=== PATIENT | male | born 1995 | race Caucasian/White ===

== ENCOUNTER 2017-04-06 16:56 | Emergency (ER) | payer BC, MEDICAID, OTHER ==
--- NOTE | 2017-04-06 18:29 | ERPHSYRPT ---
- History of Present Illness Source: patient Exam Limitations: no limitations Patient Subjective Stated Complaint: pt co sore throat for a few days, with fever yesterday, cough productive yellow sputum, Triage Nursing Assessment: pt walked in,alert, resp easy, skin w/d. throat red Timing/Duration: yesterday Cough Quality/Degree: moderate, productive cough, sputum (yellowish) Possible Cause: occasional episodes Modifying Factors: Improves With: nothing Associated Symptoms: fever Hx Tetanus, Diphtheria Vaccination/Date Given: Yes Hx Influenza Vaccination/Date Given: Yes Hx Pneumococcal Vaccination/Date Given: No Immunizations Up to Date: Yes <LEONARDO STUART - Last Filed: 04/06/17 18:34> <FOX DAVIES - Last Filed: 04/06/17 20:01> - History of Present Illness Time Seen by Provider: 04/06/17 18:15 Allergies/Adverse Reactions: No Known Drug Allergies Allergy (Unverified 04/06/17 17:08) - Review of Systems Constitutional: Fever Eyes: No Symptoms Ears, Nose, & Throat: Throat Pain, Painful Swallowing Respiratory: Cough Cardiac: No Symptoms Abdominal/Gastrointestinal: No Symptoms Genitourinary Symptoms: No Symptoms Musculoskeletal: No Symptoms Skin: No Symptoms Neurological: No Symptoms Psychological: No Symptoms Endocrine: No Symptoms Hematologic/Lymphatic: No Symptoms Immunological/Allergic: No Symptoms <LEONARDO STUART - Last Filed: 04/06/17 18:34> - Past Medical History Pertinent Past Medical History: No - Past Surgical History Past Surgical History: No - Social History Smoking Status: Current every day smoker Exposure to second hand smoke: Yes Drug Use: none Patient Lives Alone: No <LEONARDO STUART - Last Filed: 04/06/17 18:34> - Physical Exam General Appearance: mild distress Eye Exam: eyes nml inspection Ears, Nose, Throat Exam: pharyngeal erythema, tonsillar exudate Neck Exam: normal inspection, non-tender, supple, full range of motion Respiratory Exam: normal breath sounds, lungs clear, airway intact Cardiovascular Exam: regular rate/rhythm, normal heart sounds Gastrointestinal/Abdomen Exam: soft, normal bowel sounds Back Exam: normal inspection, normal range of motion, No CVA tenderness Extremity Exam: normal inspection, normal range of motion, pelvis stable Neurologic Exam: alert, oriented x 3, cooperative Skin Exam: normal color, warm, dry SpO2 Interpretation: normal SpO2: 98 Oxygen Delivery: Room Air <NARCISOLEONARDO SOTELO - Last Filed: 04/06/17 18:34> - Course Nursing assessment & vital signs reviewed: Yes <NARCISOLEONARDO SOTELO - Last Filed: 04/06/17 18:34> - Progress Discussed with .: Other (Care Transferred to Dr. Davies, with labs F/U.) <NARCISOLEONARDO SOTELO - Last Filed: 04/06/17 18:34> - Progress Counseled pt/family regarding: lab results, diagnosis, need for follow-up <FOX DAVIES - Last Filed: 04/06/17 20:01> - Progress Progress Note: 04/06/17 19:30 Pt was initially seen per Dr Stuart. He has cough, wheezing, low grade fever to 100.9, sore throat for one week. No diarrhea. No rash. Used a neb. Remote hx of childhood asthma. He is a smoker. PE: alert, lungs with faint wheeze. No distress. Red throat without exudate. Neck supple. Skin without rash. No leg edema or calf tenderness. 04/06/17 19:59 Strep and flu neg. Will Rx asthmatic bronchitis. (FOX DAVIES) <LEONARDO STUART DEEPAK - Last Filed: 04/06/17 18:34> - Departure Time of Disposition: 19:59 Departure Disposition: Home Critical Care Time: No <FOX DAVIES - Last Filed: 04/06/17 20:01> - Departure Clinical Impression: Acute asthmatic bronchitis Condition: Stable Referrals: DAVID POPE [Primary Care Provider] - Instructions: Cough -- Adult, Bronchitis Additional Instructions: Rx prednisone. Rx albuterol MDI. Rx doxycycline. Stop smoking. Follow up with Dr Pope. Prescriptions: Albuterol Sulfate [Albuterol Sulfate Hfa] 2 puff IH Q4-6HPRN PRN #1 [id number] PRN Reason: cough or wheeze Doxycycline Hyclate [Vibramycin] 1 cap PO BID #20 capsule Prednisone 20 mg [Deltasone 20 mg] 2 tab PO DAILY #10 tablet
[2017-04-06] MEDS ORDERED: TYLENOL 325 MG PO ONE (19:26)
[2017-04-06] MEDS ORDERED: TYLENOL 325 MG ONE (19:28)
[2017-04-06] MEDS ORDERED: PROVENTIL 2.5 MG/3 ML NEB IH ONE ×2 (19:30→19:36)
[2017-04-06 20:09] VITALS: BP 129/70; PULSE 74; O2SAT 100
== END 2017-04-06 20:09 | disposition home or self-care (01) ==
LOC: ED 16:56
DX: J45.909 Unspecified asthma, uncomplicated (principal); R50.9 Fever, unspecified; R05 Cough
CPT/HCPCS: 87070; 87430; 87631; 94640; 99283; A9270-GY

== ENCOUNTER 2020-03-15 21:30 | Emergency (ER) | payer OTHER ==
[2020-03-15] MEDS ORDERED: PEN-VEE K PO ONE (22:16)
[2020-03-15] MEDS ORDERED: TORAdol 30 mg Injection IM ONE (22:16)
--- NOTE | 2020-03-15 22:16 | ERPHSYRPT ---
- History of Present Illness Time Seen by Provider: 03/15/20 21:45 Source: patient Patient Subjective Stated Complaint: Patient states " I have been having a toothache for about a month and it continues to get worse". Triage Nursing Assessment: Patient arrived to ER with girlfriend driving. Patient A/O times 4. Patient able to answer questions appropriatley. Patient denies SOB/chest pain. Patient denies H/A. Patient denies N/V. Oral mucosa pink/ moist. Patient's teeth in very poor condition. Multiple top front teeth chipped off and black in color. Patient complaining of severe toothache on upper teeth/ gums. Gums slightly red in color. No drainage or abcess noted upon visual inspection. Teeth are broke off up to the gum. Patient denies seeing a dentist. Physician History: Patient is a 25-year-old male presents to our ED with complaints of dental pain. Patient has pain to his left incisor canine and molar. Particularly teeth #10, 11 and 16. Patient has been having dental ache for the past month. However dental pain is gotten worse over the past several days. Patient has very poor dentition. Patient involved molar is fractured. Patient's left incisor and canine are both avulsed down to the root with exposed pulp. Symptoms are mild to moderate in intensity. Patient states he does not have a dentist. No associated trauma. No fever. No nausea or vomiting. Patient voices no other complaints this time. Timing/Duration: gradual onset Severity: moderate ENT Location: dental Prearrival Treatment: no prearrival treatment (Patient has been using topical Anbesol. No oral analgesics.) Modifying Factors: Improves With: other (Mastication involving the involved dentition reproduces pain.) Associated Symptoms: denies symptoms, tooth pain, No facial pain/swelling, No headache, No hearing loss, No difficulty swallowing, No voice change Allergies/Adverse Reactions: No Known Drug Allergies Allergy (Unverified 03/15/20 22:07) Hx Tetanus, Diphtheria Vaccination/Date Given: Yes Hx Influenza Vaccination/Date Given: No Hx Pneumococcal Vaccination/Date Given: No Immunizations Up to Date: Yes Travel Risk - International Travel Have you traveled outside of the country in past 3 weeks: No Have you or anyone close to you been diagnosed with or: No Do your reside in a community with a known COVID-19 case?: Yes If Yes where:: [facility] - Coronavirus Screening Has patient experienced Coronavirus symptoms: No - Review of Systems Constitutional: No Symptoms, No Fever, No Chills Eyes: No Symptoms Ears, Nose, & Throat: No Symptoms Respiratory: No Symptoms, No Cough, No Dyspnea Cardiac: No Symptoms, No Chest Pain, No Edema, No Syncope Abdominal/Gastrointestinal: No Symptoms, No Abdominal Pain, No Nausea, No Vomiting, No Diarrhea Genitourinary Symptoms: No Symptoms, No Dysuria Musculoskeletal: No Symptoms, No Back Pain, No Neck Pain Skin: No Symptoms, No Rash Neurological: No Symptoms, No Dizziness, No Focal Weakness, No Sensory Changes Psychological: No Symptoms Endocrine: No Symptoms Hematologic/Lymphatic: No Symptoms Immunological/Allergic: No Symptoms All Other Systems: Reviewed and Negative - Past Medical History Pertinent Past Medical History: No Neurological History: No Pertinent History ENT History: No Pertinent History Cardiac History: No Pertinent History Respiratory History: No Pertinent History Endocrine Medical History: No Pertinent History Musculoskeletal History: No Pertinent History GI Medical History: No Pertinent History History: No Pertinent History Psycho-Social History: No Pertinent History Male Reproductive Disorders: No Pertinent History - Past Surgical History Past Surgical History: No Neuro Surgical History: No Pertinent History Cardiac: No Pertinent History Respiratory: No Pertinent History Gastrointestinal: No Pertinent History Genitourinary: No Pertinent History Musculoskeletal: No Pertinent History Male Surgical History: No Pertinent History - Social History Smoking Status: Current every day smoker How long have you smoked: 9 years Exposure to second hand smoke: Yes Drug Use: none Patient Lives Alone: No - Nursing Vital Signs Nursing Vital Signs: Initial Vital Signs Temperature 97.9 F 03/15/20 21:38 Pulse Rate 106 H 03/15/20 21:38 Respiratory Rate 18 03/15/20 21:38 Blood Pressure 152/108 03/15/20 21:38 O2 Sat by Pulse Oximetry 98 03/15/20 21:38 Pain Scale Pain Intensity 9 - Physical Exam General Appearance: no apparent distress, alert Eye Exam: bilateral eye: PERRL, EOMI Ear Exam: bilateral ear: auricle normal, canal normal, TM normal Nasal Exam: normal inspection Throat Exam: pharynx normal, moist mucus membranes, No tonsillar exudate Neck Exam: supple Cardiovascular/Respiratory Exam: normal breath sounds, regular rate/rhythm Abdominal Exam: non-tender, soft Neurologic Exam: alert, oriented x 3, sensation nml, No motor deficits Skin Exam: normal color, warm, dry SpO2 Interpretation: normal (Teeth 10, 11 and 16 are involved. Tooth 16 is fractured. Teeth 10 and 11 are avulsed down to the root with exposed pulp. The adjacent gingiva is inflamed and tender likely due to pulpitis or possible dental abscess. Airways patent. No stridor. Uvula midline. No intraoral lesions. Lungs are clear. No respiratory distress. No respiratory compromise. TMJ intact.) SpO2: 98 O2 Delivery: Room Air - Course Nursing assessment & vital signs reviewed: No Ordered Tests: Active Orders 24 hr Category Date Time Status Isolation, Initiate & Maintain Q4H Care 03/15/20 21:54 Active Medication Summary Discontinued Medications Generic Name Dose Route Start Last Admin Trade Name Freq PRN Reason Stop Dose Admin Ketorolac Tromethamine 60 mg 03/15/20 22:16 Toradol 30 Mg Injection IM 03/15/20 22:17 STAT ONE Penicillin V Potassium 500 mg 03/15/20 22:16 Pen-Vee K PO 03/15/20 22:17 STAT ONE - Progress Progress: improved Progress Note: 03/15/20 22:34 No indication for imaging at this time. Patient received a dose of penicillin VK 500 and Toradol IM in our ED. Prescription for the same or transmitted to the [facility] pharmacy. Patient was given a referral to Dr. Drake, dentist in [facility]. Patient advised to schedule appointment within 48 hours for reevaluation. Patient agrees to do so. Counseled pt/family regarding: diagnosis, need for follow-up - Departure Departure Disposition: Home Clinical Impression: Dental abscess, Dental caries Condition: Stable Critical Care Time: No Referrals: TILA DRAKE DDS [NON-STAFF PHY W/O PRIVILEGES] - Instructions: Tooth Abscess (DC), Tooth Decay, Adult (DC), Dental Pain (DC) Additional Instructions: Discharge/Care Plan SUSANA MAJANO was seen on 03/15/20 in the Emergency Room. The patient was counseled regarding Diagnosis,Lab results, Imaging studies, need for follow up and when to return to the Emergency Room. Prescriptions given: Discharge Note I have spoken with the patient and/or caregivers. I have explained the patient' s condition, diagnosis and treatment plan based on the information available to me at this time. I have answered the patient's and/or caregiver's questions and addressed any concerns. The patient and/or caregivers have as good understanding of the patient's diagnosis, condition and treatment plan as can be expected at this point. The vital signs have been stable. The patient's condition is stable and appropriate for discharge from the emergency department. The patient will pursue further outpatient evaluation with the primary care physician or other designated or consulting physician as outlined in the discharge instructions. The patient and/or caregivers are agreeable to this plan of care and follow-up instructions have been explained in detail. The patient and/or caregivers have received these instruction. The patient/and or caregivers are aware that any significant change in condition or worsening of symptoms should prompt an immediate return to this or the closest emergency department or call 911. Prescriptions: Ketorolac Tromethamine [Toradol] 10 mg PO TID 5 Days #15 tablet Penicillin V Potassium 500 mg PO QID 7 Days #28 tablet
[2020-03-15] MEDS ORDERED: TORAdol 30 mg Injection ONE (22:25)
[2020-03-15] MEDS ORDERED: PEN-VEE K ONE (22:26)
[2020-03-15 22:35] VITALS: BP 128/72
[2020-03-15 22:56] VITALS: PULSE 94; O2SAT 96
== END 2020-03-15 22:56 | disposition home or self-care (01) ==
LOC: ED 21:30
DX: K04.7 Periapical abscess without sinus (principal); K02.9 Dental caries, unspecified
CPT/HCPCS: 96372; 99283; J1885; A9270-GY

== ENCOUNTER 2020-05-01 13:45 | Emergency (ER) | payer OTHER ==
[2020-05-01 13:56] VITALS: BP 138/82; PULSE 84; O2SAT 99
--- NOTE | 2020-05-01 14:18 | ERPHSYRPT ---
- History of Present Illness Time Seen by Provider: 05/01/20 14:00 Source: patient Exam Limitations: no limitations Patient Subjective Stated Complaint: Pt states "I have a bad toothache, had it for a couple weeks. I have an appointment with a dentist tomorrow but it is g etting really bad." Triage Nursing Assessment: Pt presented alert and oriented X 3, skin pwd Pt ambulates with an upright steady gait, able to speak in clear full sentences PT has several dental carries. Pt skin has cap refill <3 Physician History: 25 years old male with multiple bad dentition presented in the ER with chief complaint of right lower jaw pain and swelling which is gradually worsening for the last 2 weeks. Patient does have appointment with dentist tomorrow. Pain is moderate to severe intensity, sharp throbbing in nature, aggravated with movements of jaw, swallowing, hot and cold intake and partial relief with taking [id number] pain medication. Denies any fever chills, neck pain or swelling. Timing/Duration: week(s) (2), gradual onset, worse Severity: moderate Modifying Factors: Improves With: medication, movement, acetaminophen, ibuprofen Associated Symptoms: denies symptoms Allergies/Adverse Reactions: No Known Drug Allergies Allergy (Verified 05/01/20 13:55) Hx Tetanus, Diphtheria Vaccination/Date Given: No Hx Influenza Vaccination/Date Given: No Hx Pneumococcal Vaccination/Date Given: No Immunizations Up to Date: Yes Travel Risk - International Travel Have you traveled outside of the country in past 3 weeks: No - Coronavirus Screening Are you exhibiting any of the following symptoms?: No Close contact with a COVID-19 positive Pt in past 14-21 Days: No - Review of Systems Constitutional: No Symptoms Eyes: No Symptoms Ears, Nose, & Throat: Mouth Swelling, Loose Teeth Respiratory: No Symptoms Cardiac: No Symptoms Abdominal/Gastrointestinal: No Symptoms Genitourinary Symptoms: No Symptoms Musculoskeletal: No Symptoms Skin: No Symptoms Neurological: No Symptoms Psychological: No Symptoms - Past Medical History Pertinent Past Medical History: No Neurological History: No Pertinent History ENT History: No Pertinent History Cardiac History: No Pertinent History Respiratory History: No Pertinent History Endocrine Medical History: No Pertinent History Musculoskeletal History: No Pertinent History GI Medical History: No Pertinent History History: No Pertinent History Psycho-Social History: No Pertinent History Male Reproductive Disorders: No Pertinent History - Past Surgical History Past Surgical History: No Neuro Surgical History: No Pertinent History Cardiac: No Pertinent History Respiratory: No Pertinent History Gastrointestinal: No Pertinent History Genitourinary: No Pertinent History Musculoskeletal: No Pertinent History Male Surgical History: No Pertinent History - Social History Smoking Status: Current every day smoker How long have you smoked: years Exposure to second hand smoke: Yes Drug Use: none Patient Lives Alone: No - Nursing Vital Signs Nursing Vital Signs: Initial Vital Signs Temperature 98.2 F 05/01/20 13:51 Pulse Rate 84 05/01/20 13:51 Respiratory Rate 18 05/01/20 13:51 Blood Pressure 138/82 05/01/20 13:51 O2 Sat by Pulse Oximetry 99 05/01/20 13:51 Pain Scale Pain Intensity 8 - Physical Exam General Appearance: no apparent distress Eye Exam: PERRL/EOMI, eyes nml inspection Ears, Nose, Throat Exam: TMs normal, pharynx normal, other (Right lower jaw swelling with multiple caries/periodontal disease/swelling of gingiva with tenderness but no fluctuation.) Neck Exam: normal inspection, non-tender, supple, full range of motion Respiratory Exam: normal breath sounds, lungs clear Cardiovascular Exam: regular rate/rhythm, normal heart sounds Extremity Exam: normal inspection Neurologic Exam: alert, oriented x 3, cooperative Skin Exam: normal color SpO2 Interpretation: normal SpO2: 99 O2 Delivery: Room Air - Course Nursing assessment & vital signs reviewed: Yes Ordered Tests: Medication Summary Discontinued Medications Generic Name Dose Route Start Last Admin Trade Name Freq PRN Reason Stop Dose Admin Ibuprofen 600 mg 05/01/20 14:15 05/01/20 14:21 Motrin 600 Mg PO 05/01/20 14:16 600 mg STAT ONE Administration Ibuprofen Confirm 05/01/20 14:19 Motrin 600 Mg Administered 05/01/20 14:20 Dose 600 mg .ROUTE .STK-MED ONE - Progress Progress: unchanged Progress Note: 05/01/20 he is given ibuprofen for symptomatic relief and started on Augmentin. Recommended keeping appointment with dentist tomorrow. Counseled pt/family regarding: diagnosis, need for follow-up - Departure Departure Disposition: Home Clinical Impression: Dental caries, Pain, dental Condition: Stable Critical Care Time: No Referrals: DOCTOR,NO FAMILY [Primary Care Provider] - BRIAN LAMBERT [ACTIVE STAFF] - Follow Up with PCP/3 days Instructions: Tooth Abscess (DC), Dental Pain (DC) Additional Instructions: Follow-up with your dentist for reevaluation as scheduled tomorrow morning. Take Tylenol ibuprofen as needed. Return to ER for any worsening. Prescriptions: Ibuprofen 600 mg PO Q6HPRN PRN 10 Days #20 tablet PRN Reason: Pain Amox Tr/Potass Clav. 875 mg [Augmentin 875-125 Tablet] 875 mg PO BID 7 Days #14 tablet
[2020-05-01] MEDS ORDERED: MOTRIN 600 MG ONE (14:19)
[2020-05-01] MEDS: MOTRIN 600 MG PO ONE (14:21)
== END 2020-05-01 14:33 | disposition home or self-care (01) ==
LOC: ED 13:45
DX: K02.9 Dental caries, unspecified (principal); K08.89 Other specified disorders of teeth and supporting structures
CPT/HCPCS: 99283; A9270-GY

== ENCOUNTER 2022-04-07 14:30 | Emergency (ER) | payer OTHER ==
[2022-04-07] MEDS ORDERED: Sodium Chloride 0.9% 1000 ML 1,000 ML ONE (14:32)
[2022-04-07] MEDS ORDERED: Hydromorphone 1 mg/ml Injection ONE ×2 (14:32→15:11)
[2022-04-07] MEDS ORDERED: KEFZOL 1 GM/50 ML PREMIX** 1 GM/50 ML IVPB IV ONE (14:34)
[2022-04-07] MEDS ORDERED: Adacel Vial IM ONE ×2 (14:34→14:41)
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
[2022-04-07] MEDS ORDERED: Compazine 10 MG/2 ML ONE (14:35)
[2022-04-07] MEDS ORDERED: Compazine 10 MG/2 ML IV ONE (14:35)
[2022-04-07] MEDS ORDERED: Hydromorphone 1 mg/ml Injection IV ONE ×2 (14:35→15:10)
[2022-04-07] MEDS ORDERED: Ativan 2 MG/1 ML VIAL IV ONE (14:43)
[2022-04-07] MEDS ORDERED: Sodium Chloride 0.9% 1000 ML 1,000 ML IV STA (14:44)
[2022-04-07] MEDS ORDERED: Ativan 2 MG/1 ML VIAL ONE (14:45)
[2022-04-07 14:52] LABS: Hematocrit 44.7 % (42-50); Hemoglobin 14.8 g/dL (12.5-18.0); Mean Cell Volume 92.2 fL (78-100); Mean Corpuscular Hemoglobin 30.5 pg (26-32); Mean Corpuscular Hgb Concent. 33.1 g/dL (32-36); Mean Platelet Volume 9.5 fL (7.5-11.0); Platelet Count 311 x10^3/uL (150-450); Red Blood Count 4.85 x10^6/uL (4.1-5.6); Red Cell Distribution Width 13.2 % (11.5-14.0); White Blood Count 18.3 x10^3/uL (4.0-10.5)
[2022-04-07 15:05] LABS: ALBUMIN 4.5 g/dL (3.5-5.0); ALKALINE PHOSPHATASE 79 U/L (38-126); ANION GAP 16.8 MEQ/L (5-15); BLOOD UREA NITROGEN 17 mg/dL (9-20); CHLORIDE 108 mmol/L (98-107); Calcium 9.2 mg/dL (8.4-10.2); Carbon Dioxide 20 mmol/L (22-30); Creatinine 1 1.23 mg/dL (0.66-1.25); EST GLOMERULAR FILTRATION RATE > 60.0 ML/MIN; Glucose 168 mg/dL (74-106); Potassium 3.5 mmol/L (3.5-5.1); SGOT/AST 40 U/L (17-59); SGPT/ALT 42 U/L (0-50); SODIUM 142 mmol/L (137-145); Total Protein 7.7 g/dL (6.3-8.2)
[2022-04-07 16:33] VITALS: BP 118/75; PULSE 92; O2SAT 95
[2022-04-07 22:58] LABS: Eosinophil 3 % (0.00-3.0); Lymphocytes 45 % (24-44); Monocyte 6 % (0.0-12.0); Total Cells Counted 100
[2022-04-07 22:59] LABS: Platelet Estimate NORMAL (NORMAL)
[2022-04-08] MEDS ORDERED: BACIGUENT 30 GM TP ONE (15:17)
== END 2022-04-07 16:45 | disposition short-term general hospital (02) ==
LOC: ED 14:30
DX: T20.29XA Burn of second degree of multiple sites of head, face, and neck, initial encounter (principal); T20.27XA Burn of second degree of neck, initial encounter; T22.292A Burn of second degree of multiple sites of left shoulder and upper limb, except wrist and hand, initial encounter; T23.292A Burn of second degree of multiple sites of left wrist and hand, initial encounter; T23.222A Burn of second degree of single left finger (nail) except thumb, initial encounter; T21.15XA Burn of first degree of buttock, initial encounter; W40.1XXA Explosion of explosive gases, initial encounter; Z72.0 Tobacco use; Z79.891 Long term (current) use of opiate analgesic
CPT/HCPCS: 36000; 36415; 80053; 85025; 90471; 90715; 96374; 96375; 99285; J0690; J1170; J2060; A9270-GY